=== PATIENT | female | born 1975 | race Caucasian/White ===

== ENCOUNTER 2024-01-11 21:47 | Emergency (ER) | payer OTHER ==
[~2024-01-11] VITALS: Ht 165.1 cm; Wt 96.0 kg
[2024-01-11 21:50] VITALS: BP 122/79; PULSE 94; RESP 16; TEMP 98.3; O2SAT 100
[2024-01-11 22:41] LABS: BASOPHILS % 0.4 % (0.0-2.0); DIFFERENTIAL COMMENT 0; EOSINOPHILS % 1.4 % (0.0-5.0); HEMATOCRIT. 32.3 % (36.0-48.0); HEMOGLOBIN. 10.2 g/dL (12.0-16.0); LYMPHOCYTES % 13.1 % (20.0-50.0); MEAN CORPUSCULAR HEMOGLOBIN 22.5 pg (28.0-32.0); MEAN CORPUSCULAR HGB CONC 31.4 g/dL (31.0-37.0); MEAN CORPUSCULAR VOLUME 71.6 fL (81.0-99.0); NEUTROPHILS % 80.1 % (40.0-76.0); PLATELET 330 x1000/uL (130-400); RED BLOOD CELL COUNT 4.52 mill/uL (4.2-5.4); RED CELL DISTRIBUTION WIDTH 16.8 % (11.6-14.6); WHITE BLOOD COUNT 13.3 x1000/uL (4.5-11.0)
[2024-01-11 22:46] LABS: CLARITY URINE CLEAR (CLEAR); COLOR URINE YELLOW (YELLOW); GLUCOSE URINE NEGATIVE (NEGATIVE); KETONES URINE NEGATIVE (NEGATIVE); LEUKOCYTE ESTERASE URINE 2+ (NEGATIVE); NITRITE URINE NEGATIVE (NEGATIVE); OCCULT BLOOD URINE NEGATIVE (NEGATIVE); PH URINE 6.5 (4.5-8.0); PROTEIN URINE 1+ (NEGATIVE); SPECIFIC GRAVITY URINE 1.011 (1.005-1.030); UROBILINOGEN URINE 0.2 E.U./dL (0.2-1.0)
[2024-01-11 22:58] LABS: ALANINE AMINOTRANSFERASE 8 IU/L (10-49); ALBUMIN 4.5 g/dL (3.2-4.8); ASPARTATE AMINOTRANSFERASE 10 IU/L (<34); BILIRUBIN TOTAL 0.4 mg/dL (0.1-1.0); CALCIUM 8.6 mg/dL (8.7-10.4); CARBON DIOXIDE 29 mEq/L (21-32); CHLORIDE 102 mEq/L (98-107); CREATININE 1.5 mg/dL (0.6-1.0); GLUCOSE 236 mg/dL (70-105); POTASSIUM 4.4 mEq/L (3.5-5.1); PROTEIN TOTAL 8.2 g/dL (6.0-8.3); SODIUM 134 mEq/L (136-145); UREA NITROGEN BLOOD 20 mg/dL (9-23)
[2024-01-11 23:02] LABS: HCG SCREEN NEGATIVE
[2024-01-11 23:26] LABS: RBC URINE 0-2 /hpf (0-2)
[2024-01-11 23:27] LABS: BACTERIA URINE TRACE; SQUAMOUS EPITHELIAL CELL URINE 1+ /lpf (RARE/1+)
[2024-01-12] MEDS: SODIUM CHLORIDE 0.9% 1,000 ML IV ONE (01:10)
[2024-01-12] MEDS: ONDANSETRON HCL 4MG/2ML INJ IV ONE (01:10)
[2024-01-12] MEDS ORDERED: ONDA4TAB50 MT (02:21)
== END 2024-01-12 04:14 | disposition home or self-care (01) ==
LOC: ER 21:47
DX: R11.2 Nausea with vomiting, unspecified (principal); T50.905A Adverse effect of unspecified drugs, medicaments and biological substances, initial encounter; N39.0 Urinary tract infection, site not specified; N28.9 Disorder of kidney and ureter, unspecified; F32.A Depression, unspecified; E11.9 Type 2 diabetes mellitus without complications; I10 Essential (primary) hypertension; Y92.89 Other specified places as the place of occurrence of the external cause
CPT/HCPCS: 80053; 81003; 84703; 85025; 87086; 36415; 99283; 96374; J2405; J7030; Z7610 ×2

== ENCOUNTER 2024-05-20 11:10 | Emergency (ER) | payer MEDICAID, OTHER ==
[~2024-05-20] VITALS: Ht 170.2 cm; Wt 91.0 kg
[~2024-05-20 11:10] MED LIST: ONDA4TAB50 MT
[2024-05-20 11:20] VITALS: O2SAT 99
[2024-05-20 12:33] LABS: POTASSIUM 4.4 mEq/L (3.5-5.1)
[2024-05-20 12:35] LABS: BASOPHILS % 1.1 % (0.0-2.0); CALCIUM 8.6 mg/dL (8.7-10.4); DIFFERENTIAL COMMENT 0; EOSINOPHILS % 3.9 % (0.0-5.0); HEMATOCRIT. 28.7 % (36.0-48.0); LYMPHOCYTES % 13.2 % (20.0-50.0); MEAN CORPUSCULAR HGB CONC 31.3 g/dL (31.0-37.0); MEAN CORPUSCULAR VOLUME 70.2 fL (81.0-99.0); MEAN PLATELET VOLUME 9.8 fl (7.4-10.4); MONOCYTES % 5.1 % (2.0-8.0); NEUTROPHILS % 76.7 % (40.0-76.0); PLATELET 272 x1000/uL (130-400); RED BLOOD CELL COUNT 4.09 mill/uL (4.2-5.4); RED CELL DISTRIBUTION WIDTH 15.9 % (11.6-14.6); WHITE BLOOD COUNT 10.1 x1000/uL (4.5-11.0)
[2024-05-20 12:37] LABS: INR 0.9; PROTHROMBIN TIME 10.3 sec (9.6-11.0)
[2024-05-20 12:39] LABS: CREATININE 1.3 mg/dL (0.6-1.0)
[2024-05-20 12:42] LABS: HCG SCREEN NEGATIVE
[2024-05-20] MEDS: SODIUM CHLORIDE 0.9% 1,000 ML IV ONE (14:30)
[2024-05-20] MEDS: INSULIN REGULAR (HUMULIN R) 1000UNITS/10ML VIAL SUBCUT NR (15:09)
[2024-05-20 16:57] VITALS: BP 154/67; PULSE 94; RESP 18; TEMP 98.2
== END 2024-05-20 18:14 | disposition home or self-care (01) ==
LOC: ER 11:10
DX: T82.898A Other specified complication of vascular prosthetic devices, implants and grafts, initial encounter (principal); E11.65 Type 2 diabetes mellitus with hyperglycemia; F32.9 Major depressive disorder, single episode, unspecified; I10 Essential (primary) hypertension; X58.XXXA Exposure to other specified factors, initial encounter
CPT/HCPCS: 36573; 80048; 82962; 84703; 85025; 85610; 36415; 93971; 99285; 96360; 96361; 96372; 71045; C1725; J1815

== ENCOUNTER 2025-07-09 13:33 | Emergency (ER) | payer MEDICAID ==
[~2025-07-09] VITALS: Ht 165.1 cm; Wt 105.0 kg
[2025-07-09 13:52] VITALS: O2SAT 97
[2025-07-09] MEDS: KETOROLAC 30MG/ML VIAL IM ONE (18:00)
[2025-07-09] MEDS ORDERED: CEPH500T MT (20:42)
[2025-07-09] MEDS ORDERED: IBUP-1455 MT (20:42)
[2025-07-09 21:51] VITALS: BP 179/85; PULSE 70; RESP 19; TEMP 37; O2SAT 97
== END 2025-07-09 21:56 | disposition home or self-care (01) ==
LOC: ER 13:33
DX: M79.671 Pain in right foot (principal); R60.0 Localized edema; E11.9 Type 2 diabetes mellitus without complications; I10 Essential (primary) hypertension; Z88.8 Allergy status to other drugs, medicaments and biological substances
CPT/HCPCS: 99283; 73620; 96372; J1885